=== PATIENT | male | born 1955 | race Caucasian/White ===

== ENCOUNTER → 2019-07-11 | Outpatient (CLI) | payer BC ==
--- NOTE | 2019-07-11 19:12 | Diagnostic Imaging Report ---
Exam: Lumbar spine MRI without IV contrast History: Impingement syndrome. Right leg pain, numbness and tingling Comparison studies: None Technique: Sagittal and axial T2 , sagittal T1 and IR, axial spin density oblique. Intravenous contrast: None Findings: Number of lumbar vertebral bodies: 5. Alignment: Normal lumbar lordosis. Mild dextro levocurvature. Soft tissues: No T2 hyperintense inflammatory changes. Paraspinal muscles: No signal abnormalities. Well-preserved. No atrophic changes Lower thoracic cord: Normal in signal and morphology. The tip of the conus is at L1-L2. Cauda equina: No masses. No arachnoiditis. Vertebrae: No compression fractures, infection or neoplasm. Degenerative changes: L1-L2: Patent canal and foramina. L2-L3: Mildly degenerated disc with loss of disc height loss of T2 disc signal. Asymmetric left disc bulge, thickened ligamentum flavum and facet arthrosis result in mild canal stenosis, moderate bilateral foraminal stenosis and left subarticular stenosis with impingement on the left L3 nerve root. L3-L4: Mildly degenerated disc with loss of T2 disc signal. Symmetric disc bulge, thickened ligamentum flavum and bilateral facet arthrosis with mild canal stenosis and severe right and moderate left foraminal stenosis. L4-L5: Mildly degenerated disc with loss of T2 disc signal. Symmetric disc bulge and moderate facet arthrosis with severe right and moderate left foraminal stenosis. L5-S1: Bilateral facet arthrosis without significant canal or foraminal stenosis. IMPRESSION: 1. Mild multilevel disc degeneration and multilevel facet arthrosis. 2. Mild degenerative canal stenosis at L2-L3 and at L3-L4. 3. General foraminal stenosis, moderate bilaterally at L2-L3 and severe right and moderate left at L3-L4 and at L4-5. 4. Left subarticular stenosis at L2-L3 with impingement on the left L3 nerve root. Signed by: Dr. Albert Ramos M.D. on 07/11/2019 7:08 PM
--- NOTE | 2019-07-12 09:56 | Diagnostic Imaging Report ---
MRI of the right shoulder without contrast. History: Shoulder pain. Impingement. Decreased range of motion. Rotator cuff tear. Pain not responding to conservative management. Prior surgery Comparison: None Technique: Coronal PD FS, sagital PD FS, and axial PD and PD FS. Findings: Rotator cuff: Postsurgical change to the rotator cuff with associated metallic artifacts. Rotator cuff tendinosis with full-thickness re-tear involving the supraspinatus and infraspinatus tendons at the humeral insertion site. There is retraction of the torn fibers to the level of the glenoid and there is moderate supraspinatus and mild infraspinatus muscle atrophy. Additionally, there is subscapularis tendinosis with articular sided partial tear. The teres minor tendon is intact. Osseous acromion complex: Type II acromion with mild lateral downsloping. Moderate degenerative arthrosis at the acromioclavicular joint with undersurface spurring and narrowing of the supraspinatus tendon outlet. Mild subacromial/subdeltoid bursitis. Glenohumeral joint: Degeneration and fraying of the labrum. Articular cartilage fraying and deep fissuring at the anterior inferior glenoid with subchondral cystic change. Effusion/synovitis in the rotator interval and subcoracoid space. Biceps tendon: Intra-articular biceps tendinosis with partial tearing of the biceps anchor. Small loose bodies within the biceps tendon sheath. Other findings: Negative for muscle denervation or osseous fracture Impression: Postsurgical change to the rotator cuff with associated metallic artifacts. Rotator cuff tendinosis with full-thickness re-tear involving the supraspinatus and infraspinatus tendons at the humeral insertion site. There is retraction of the torn fibers to the level of the glenoid and there is moderate supraspinatus and mild infraspinatus muscle atrophy. Additionally, there is subscapularis tendinosis with articular sided partial tear. Articular cartilage fraying and deep fissuring at the anterior inferior glenoid with subchondral cystic change. Effusion/synovitis in the rotator interval and subcoracoid space. Intra-articular biceps tendinosis with partial tearing of the biceps anchor. Small loose bodies within the biceps tendon sheath. Signed by: Dr. Raúl Regalado M.D. on 07/12/2019 9:53 AM
== END ==
LOC: MRI 13:35
PROVIDERS: ATTEND Orthopaedic Surgery
DX: M75.41 Impingement syndrome of right shoulder (principal); M54.16 Radiculopathy, lumbar region
CPT/HCPCS: 72148

== ENCOUNTER → 2020-03-17 | Outpatient (CLI) | payer BC | LOC: RAD 08:35 | PROVIDERS: ATTEND Internal Medicine Interventional Cardiology | DX: R07.89 Other chest pain (principal); R06.09 Other forms of dyspnea; I65.23 Occlusion and stenosis of bilateral carotid arteries; R94.31 Abnormal electrocardiogram [ECG] [EKG] | CPT/HCPCS: 93306; 93880 ==

== ENCOUNTER → 2020-09-16 | Outpatient (CLI) | payer OTHER ==
[~2020-09-16] MED LIST: COVID-19 VACC, MRNA(MODERNA)/PF 100 MCG/0.5 ML VIAL IM ONE
== END ==
LOC: VACCPMC 17:30
DX: Z23 Encounter for immunization (principal); Z20.828 Contact with and (suspected) exposure to other viral communicable diseases

== ENCOUNTER → 2020-10-19 | Outpatient (CLI) | payer OTHER | LOC: VACCPMC 08:22 | DX: Z23 Encounter for immunization (principal); Z20.822 Contact with and (suspected) exposure to COVID-19 ==

== ENCOUNTER 2021-02-17 14:04 | Emergency (ER) | payer OTHER ==
[~2021-02-17] VITALS: Ht 175.3 cm; Wt 113.4 kg
[2021-02-17] MEDS ORDERED: MONTELUKAST SOD10 MG (15:05)
[2021-02-17] MEDS ORDERED: ATORVASTATIN CA20 MG (15:05)
[2021-02-17] MEDS ORDERED: CELECOXIB200 MG (15:05)
[2021-02-17] MEDS ORDERED: ARMODAFINIL250 MG (15:05)
[2021-02-17] MEDS ORDERED: NEURONTIN100 MG PO (15:13)
[2021-02-17] MEDS ORDERED: DEXAMETHASONE SOD PHOS 10 MG/1 ML VIAL IM ONE (15:15)
[2021-02-17] MEDS ORDERED: DEXAMETHASONE SOD PHOS 10 MG/1 ML VIAL ONE (15:23)
== END 2021-02-17 15:45 | disposition home or self-care (01) ==
LOC: ER 15:12
DX: M54.5 Low back pain (principal); M48.061 Spinal stenosis, lumbar region without neurogenic claudication; E78.5 Hyperlipidemia, unspecified; G40.909 Epilepsy, unspecified, not intractable, without status epilepticus
CPT/HCPCS: 99282; J1100

== ENCOUNTER → 2021-03-03 | Outpatient (CLI) | payer OTHER ==
[~2021-03-03] MED LIST changes: +ARMODAFINIL250 MG; +ATORVASTATIN CA20 MG; +CELECOXIB200 MG; -COVID-19 VACC, MRNA(MODERNA)/PF 100 MCG/0.5 ML VIAL IM ONE; +MONTELUKAST SOD10 MG; +NEURONTIN100 MG PO
== END ==
LOC: MRI 07:21
PROVIDERS: ATTEND Psychiatry & Neurology Neurology
DX: M54.16 Radiculopathy, lumbar region (principal)
CPT/HCPCS: 72148

== ENCOUNTER → 2021-04-13 | Outpatient (CLI) | payer OTHER | LOC: RAD 15:06 | PROVIDERS: ATTEND Neurological Surgery | DX: M79.605 Pain in left leg (principal) | CPT/HCPCS: 93970 ==

== ENCOUNTER → 2021-07-21 | Outpatient (CLI) | payer OTHER ==
[~2021-07-21] MED LIST changes: +COVID-19 VACC, MRNA(MODERNA)/PF 100 MCG/0.5 ML VIAL IM ONE
== END ==
LOC: VACCPMC 08:15
DX: Z23 Encounter for immunization (principal); Z20.822 Contact with and (suspected) exposure to COVID-19
CPT/HCPCS: 91301